=== PATIENT | male | born 1975 | race Caucasian/White ===

== ENCOUNTER 2024-06-05 10:55 | Emergency (ER) | payer BC, SELFPAY ==
[2024-06-05 10:58] VITALS: BP 169/110
[2024-06-05 11:16] LABS: % Basophils 1.3 % (0-2); % Eosinophils 1.7 % (0-6); % Immature Granulocytes 0.4 % (0-0.5); % Lymphocytes 19.2 % (20.5-51.1); % Monocytes 7.6 % (1.7-9.3); % Neutrophils 69.8 % (42.2-75.2); Absolute Basophils 0.1 10^3/uL (0-0.2); Absolute Eosinophils 0.1 10^3/uL (0-0.7); Absolute Lymphocytes 1.5 10^3/uL (1.2-3.4); Absolute Monocytes 0.6 10^3/uL (0.1-0.6); Absolute Neutrophils 5.3 10^3/uL (1.4-6.5); Hematocrit 46.6 % (39.0-52.0); Mean Corp Hgb Conc. 34.3 g/dL (33.0-37.0); Mean Corpuscular Volume 87.4 fL (80.0-94.0); Mean Platelet Volume 10.3 fL (7.4-10.4); Nucleated Red Blood Cells % 0 % (-); Platelet Count 276 10^3/uL (130-400); Red Blood Cell Count 5.33 10^6/uL (4.70-6.10); Red Cell Dist. Width 12.9 % (11.5-14.5); White Blood Cell Count 7.6 10^3/uL (4.8-10.8)
[2024-06-05 11:28] LABS: ALT (SGPT) 25 U/L (0-50); AST (SGOT) 22 U/L (17-59); Albumin 4.7 g/dl (3.5-5.0); Alkaline Phosphatase 76 U/L (38-126); Blood Urea Nitrogen 16 mg/dl (9-20); Calcium 10.7 mg/dl (8.4-10.2); Carbon Dioxide 27 mmol/L (22-30); Chloride 104 mmol/L (98-107); Glucose 130 mg/dl (70-99); Potassium 4.5 mmol/L (3.5-5.1); Sodium 140 mmol/L (135-145); Total Bilirubin 0.7 mg/dl (0.2-1.3); Total Protein 7.1 g/dl (6.3-8.2); eGFR > 60.00
[2024-06-05 11:39] LABS: Troponin I < 0.012 ng/ml
[2024-06-05 12:19] VITALS: BP 136/81; BMI 27.2
--- NOTE | 2024-06-05 12:52 | ED.GENMED ---
History of Present Illness
General
Chief Complaint: Chest Pain
Source: patient
Exam Limitations: none
Time Seen by Provider: 06/05/24 12:34
Nursing documentation reviewed up to this point in time: agreed with
History of Present Illness
History of Present Illness:
49-year-old male with history of HTN, GERD HLD presents stating he's had left upper chest and left neck pain pat 2 days, causes him to have a headache. Advil 400 mg with no relief. Pain is constant. No recollection of overuse or injury but he works
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 Denies SOB, n/v. [place], no ocean or excessive activity.
Saw PCP last week
Saw his Php Lamp Developer at [place] 2 weeks ago and had echo and has heard nothing back yet. Told his cholesterol is high and has rx for Rosuvastatin waiting at his pharmacy for pickup
Past History
Past History
ED Past Medical History: GERD, HTN and Hypercholesterolemia
ED Past Surgical History: Cholecystectomy and Orthopedic
Social History
Tobacco: Non-smoker
Alcohol: Occasional
Drug: None
Personal:
Living: with family
Employment: Employed
Review of Systems
Review of Systems
Allergies reviewed?: Yes
All Other Systems: ROS reviewed and negative except as documented in HPI and ROS
Constitutional: Denies fatigue
Respiratory: Denies trouble breathing
Cardiac: Reports chest pain (L upper chest); Denies diaphoresis or palpitations
ABD/GI: Denies abdominal pain, nausea, vomiting, diarrhea or anorexia
: Denies difficulty voiding
Musculoskeletal: Reports neck pain (left side of neck)
Skin: Reports no symptoms
Neurological: Reports no symptoms
Phy Exam
Physical Exam
Physical Exam:
GENERAL: No acute distress. A&Ox3.
CONSTITUTIONAL: Afebrile.
EYES: clear, conjunctivae normal
Neck: Supple. Full ROM
ENMT: moist mucus membranes, Pharynx nl
RESPIRATORY: Regular respirations, nonlabored, lungs clear.
CARDIOVASCULAR: Regular rate and rhythm, no murmurs, no rubs.
GI: Soft, nontender, normal BS
MUSCULOSKELETAL: No spinal bony tenderness. Full ROM of neck, discomfort elicited with rotation to right. Mildly tender right neck ST up to lower occiput. Full ROM of LUE. Non tender left upper chest wall to palpation. Moves with ease. Well
perfused.
SKIN: Warm, dry, pink
PSYCH: Normal mood and affect. Well kept, interactive and appropriate
NEUROLOGIC: Awake, alert and oriented. No focal neurological deficits
Scores
Heart Score for Chest Pain Patients
STEMI patient?: Not applicable
Course
Orders/Labs/Results
Orders:
Orders
06/05/24 10:58
ECG [Electrocardiogram (*1)] Urgent
Reason for Study: Chest Pain
EKG- Treatment ONCE
06/05/24 11:05
Complete Blood Count/With Diff Urgent
Comprehensive Metabolic Panel Urgent
Troponin I Urgent
06/05/24 13:12
CR Chest - 2 Views Urgent
Comment:
Reason For Exam: L upper chest pain
06/05/24 14:31
Acetaminophen [Tylenol] 1,000 mg PO NOW STA
Abnormal Lab Results
06/05/24
11:05
Lymphocytes % 19.2 L %
(20.5-51.1)
Glucose 130 H mg/dl
(70-99)
Calcium 10.7 H mg/dl
(8.4-10.2)
06/05/24 11:05
06/05/24 11:05
Vital Signs
Initial and Last Documented VS:
Initial Vital Signs
Temp Pulse Resp BP Pulse Ox
98.0 F 110 18 169/110 98
06/05/24 10:58 06/05/24 10:58 06/05/24 10:58 06/05/24 10:58 06/05/24 10:58
Last Documented Vital Signs
Temp Pulse Resp BP Pulse Ox
98.5 F 86 16 124/85 99
06/05/24 12:19 06/05/24 14:35 06/05/24 14:35 06/05/24 14:35 06/05/24 14:35
MDM/Problems Addressed
Differential Diagnosis Includes:
ACS, musculoskeletal pain
MDM/Problems Addressed:
49-year-old male with history of HTN, GERD HLD presents stating he's had left upper chest and left neck pain pat 2 days, causes him to have a headache. Advil 400 mg with no relief. Pain is constant. No recollection of overuse or injury but he works
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 Denies SOB, n/v. [place] the [place], no ocean or excessive activity.
Saw PCP last week
Saw his Php Lamp Developer at [place] 2 weeks ago and had echo and has heard nothing back yet. Told his cholesterol is high and has rx for Rosuvastatin waiting at his pharmacy for pickup
EKG NSR
CBC, CMP normal
Troponin Normal
2:30 PM:
Chest x-ray normal
Pt given Tylenol for his headache
BP 124/85
*EKG
EKG Intrepretation Date: 06/05/24
Interpretation: normal
Heart Rate: 99
Rate: normal
Rhythm: sinus
[place]: normal axis
Interval: normal interval
QRS Pattern: normal QRS
Ischemia: no ischemia
*Critical Care Note
Total Time (30-74mins, 75-104mins- exclusive of procedures): Not Applicable
ED Attending Note
-
Portions of this chart may have been created with voice recognition software.� Occasional wrong word or��sound alike� substitutions may have occurred due to the inherent limitations of voice recognition software.
Discharge Plan
Departure
Patient Disposition: Home (Routine Discharge)
Date of Disposition: 06/05/24
Time of Disposition: 14:29
Patient with high blood pressure during this ER visit?: No
Condition: Good
Discharge Problem:
Musculoskeletal chest pain, Musculoskeletal neck pain, Headache
Instructions: Chest Pain That Is Not Caused by the Heart (DC), Headache, Adult ED, Musculoskeletal Pain
Prescriptions:
No Action
pantoprazole 40 MG tablet,delayed release (DR/EC)
40 mg PO DAILY
Theragen Tablet
1 tab PO DAILY
ascorbic acid (vitamin C) [Vitamin C] 500 mg Tablet
500 mg PO DAILY
ibuprofen 200 mg Tablet
400 mg PO BIDPRN PRN (Reason: mild pain)
amlodipine-benazepril 5-20 mg Capsule
1 cap PO DAILY
Referrals:
Yesica Gomez CRNP [Family Provider] - As needed
Activity Restrictions/Additional Instructions:
As we discussed, your workup here today shows nothing worrisome, specifically no indication that your symptoms are caused from your heart or heart attack.
This is most likely musculoskeletal pain. I sent a prescription to your pharmacy for a muscle relaxant. The Flexeril or cyclobenzaprine can make you sleepy and slow the reflexes so do not drive or operate any machinery within 8 hours of taking it.
You may want to save the Flexeril for bedtime or for when you can rest.
Ibuprofen 600 mg every 6-8 hours or Tylneol 1000 mg 3 times a day as needed for pain or headache
Avoid any activity that aggravates the pain
See your doctor in 7-10 days if not better by then
Interventions
Interventions:
*Risk Screen - Suicide Last Done: 06/05/24 12:19
*General Assessment Last Done: 06/05/24 12:19
*Neglect/Abuse Screening Last Done: 06/05/24 12:19
ED- Fall Risk Assessment Last Done: 06/05/24 12:19
*ED COVID-19 Vaccine History Last Done: 06/05/24 12:19
*Nursing Disposition Last Done: 06/05/24 14:40
ED- Cardiac Assessment Last Done: 06/05/24 12:19
Discharge Date and Time
Discharge Date/Time: 06/05/24 14:41
Print Language: KISWAHILI
[2024-06-05 13:07] VITALS: BP 134/93
[2024-06-05 13:55] VITALS: BP 134/93
--- NOTE | 2024-06-05 13:56 | EDRN ---
the pt is resting in stretcher in the lowest position, side rails up x1, call hope within reach, HOB elevated, no s/s of distress, the pt denies chest pain and denies shoulder pain at this time, awaiting for the pt to go to xray, will continue to
monitor the pt closely
[2024-06-05 14:31] VITALS: BP 124/85
[2024-06-05 14:35] VITALS: BP 124/85
[2024-06-05] MEDS: TYLENOL 1000 MG PO (14:37)
== END 2024-06-05 14:41 | disposition home or self-care (01) ==
LOC: EMR 10:55
PROVIDERS: Emergency Medicine; EMERGENCY PHYSICIAN Emergency Medicine; FAMILY PHYSICIAN Registered Nurse
DX: R07.89 Other chest pain (principal); M54.2 Cervicalgia; R51.9 Headache, unspecified; I10 Essential (primary) hypertension; E78.00 Pure hypercholesterolemia, unspecified; K21.9 Gastro-esophageal reflux disease without esophagitis
CPT/HCPCS: 99284; 71046; 80053; 84484; 85025; 93005

== ENCOUNTER → 2024-07-03 14:18 | Outpatient (REF) | payer BC, SELFPAY | LOC: RAD 14:18 | PROVIDERS: ATTENDING PHYSICIAN Physician Assistant; FAMILY PHYSICIAN Registered Nurse | DX: M79.662 Pain in left lower leg (principal) | CPT/HCPCS: 93971 ==

== ENCOUNTER → 2024-07-10 16:41 | Outpatient (REF) | payer BC, SELFPAY | LOC: RAD 16:41 | PROVIDERS: ATTENDING PHYSICIAN Orthopaedic Surgery Hand Surgery; FAMILY PHYSICIAN Registered Nurse | DX: S05.50XA Penetrating wound with foreign body of unspecified eyeball, initial encounter (principal) | CPT/HCPCS: 70030 ==

== ENCOUNTER 2024-08-18 09:33 | Emergency (ER) | payer BC, SELFPAY ==
[2024-08-18 09:40] VITALS: BP 149/97
[2024-08-18 10:55] LABS: % Basophils 1.2 % (0-2); % Eosinophils 1.1 % (0-6); % Immature Granulocytes 0.5 % (0-0.5); % Lymphocytes 17.9 % (20.5-51.1); % Monocytes 8.7 % (1.7-9.3); % Neutrophils 70.6 % (42.2-75.2); Absolute Basophils 0.1 10^3/uL (0-0.2); Absolute Eosinophils 0.1 10^3/uL (0-0.7); Absolute Lymphocytes 1.2 10^3/uL (1.2-3.4); Absolute Monocytes 0.6 10^3/uL (0.1-0.6); Absolute Neutrophils 4.6 10^3/uL (1.4-6.5); Hematocrit 45.4 % (39.0-52.0); Hemoglobin 15.5 g/dL (13.0-18.0); Mean Corp Hgb Conc. 34.1 g/dL (33.0-37.0); Mean Corpuscular Hgb 30.7 pg (27.0-31.0); Mean Corpuscular Volume 89.9 fL (80.0-94.0); Mean Platelet Volume 10.1 fL (7.4-10.4); Nucleated Red Blood Cells % 0 % (-); Platelet Count 259 10^3/uL (130-400); Red Blood Cell Count 5.05 10^6/uL (4.70-6.10); Red Cell Dist. Width 12.6 % (11.5-14.5); White Blood Cell Count 6.4 10^3/uL (4.8-10.8)
[2024-08-18 11:00] VITALS: BP 131/89
[2024-08-18 11:00] LABS: ALT (SGPT) 36 U/L (0-50); AST (SGOT) 28 U/L (17-59); Albumin 4.5 g/dl (3.5-5.0); Alkaline Phosphatase 77 U/L (38-126); Blood Urea Nitrogen 18 mg/dl (9-20); Calcium 10.4 mg/dl (8.4-10.2); Carbon Dioxide 27 mmol/L (22-30); Chloride 105 mmol/L (98-107); Glucose 110 mg/dl (70-99); Magnesium 2.1 mg/dl (1.6-2.3); Potassium 4.4 mmol/L (3.5-5.1); Sodium 141 mmol/L (135-145); Total Bilirubin 0.4 mg/dl (0.2-1.3); eGFR > 60.00
[2024-08-18 11:09] LABS: Troponin I < 0.012 ng/ml
--- NOTE | 2024-08-18 11:42 | ED.GENMED ---
History of Present Illness
General
Chief Complaint: Chest Pain
Source: patient
Exam Limitations: none
Time Seen by Provider: 08/18/24 10:16
Nursing documentation reviewed up to this point in time: agreed with
History of Present Illness
History of Present Illness:
49-year-old male presenting to the emergency department today with concerns of chest pain intermittently over the past month none currently and also very mild diffuse headache described as achy. Also mild nausea. Chest pain sometimes will radiate
to his shoulder. Does follow-up with cardiology has had outpatient workups without any specific conclusion. He is also to started new medications 10 days ago for blood pressure.
Past History
Past History
ED Past Medical History: GERD, HTN and Hypercholesterolemia
ED Past Surgical History: Cholecystectomy and Orthopedic
Social History
Tobacco: Non-smoker
Alcohol: Occasional
Drug: None
Personal:
Living: with family
Employment: Employed
Review of Systems
Review of Systems
Allergies reviewed?: Yes
All Other Systems: ROS reviewed and negative except as documented in HPI and ROS
Phy Exam
Physical Exam
Physical Exam:
GENERAL: Alert , in no apparent distress
EYE: pupils equal and reactive
NECK: Supple, no significant adenopathy.
ENT: o/p clr, mmm.
CARDIAC: Regular rate and rhythm .
LUNGS: Clear breath sounds bilaterally, no acute respiratory distress, no wheezes/rales/rhonchi
ABDOMEN: Soft, without focal tenderness, no r/g, no cvat
NEUROLOGICAL: Alert and oriented, no focal neuro deficits
SKIN: Warm and dry, skin intact.
MUSCULOSKELETAL: No edema, well perfused.
PSYCH: Normal and appropriate interaction.
Scores
Heart Score for Chest Pain Patients
STEMI patient?: No
History: Slightly or Non-Suspicious
ECG: Normal
Age: >45 - <65 years
Risk Factors: 1 or 2 Risk Factors
Troponin: </= Normal Limit
Heart Score for Chest Pain Patients: 2
Heart Score Risk: 2.5% MACE over next 6 weeks
Course
Orders/Labs/Results
Orders:
Orders
08/18/24 09:33
EKG [Electrocardiogram (*1)] Urgent
Reason for Study: Chest Pain
08/18/24 09:34
EKG- Treatment ONCE
08/18/24 10:32
CR Chest - 2 Views Urgent
Comment:
Reason For Exam: cp
08/18/24 10:39
Complete Blood Count/With Diff Urgent
Comprehensive Metabolic Panel Urgent
Magnesium Urgent
Troponin I Urgent
Abnormal Lab Results
08/18/24
10:39
Lymphocytes % 17.9 L %
(20.5-51.1)
Glucose 110 H mg/dl
(70-99)
Calcium 10.4 H mg/dl
(8.4-10.2)
08/18/24 10:39
08/18/24 10:39
Vital Signs
Initial and Last Documented VS:
Initial Vital Signs
Temp Pulse Resp BP Pulse Ox
98.0 F 110 16 149/97 98
08/18/24 09:40 08/18/24 09:40 08/18/24 09:40 08/18/24 09:40 08/18/24 09:40
Last Documented Vital Signs
Temp Pulse Resp BP Pulse Ox
98.0 F 89 28 149/97 94
08/18/24 09:40 08/18/24 10:54 08/18/24 10:45 08/18/24 09:40 08/18/24 10:45
MDM/Problems Addressed
MDM/Problems Addressed:
49-year-old male presenting to the emergency department today with concerns of chest pain intermittently over the past month as well as headache tribes vague diffuse associated nausea. On arrival blood pressure mildly elevated but improved without
specific treatment otherwise vital signs are normal. Afebrile labs unremarkable troponin negative EKG normal no signs of emergent process stable for outpatient follow-up return precautions given.
*Critical Care Note
Total Time (30-74mins, 75-104mins- exclusive of procedures): Not Applicable
ED Attending Note
-
Portions of this chart may have been created with voice recognition software.� Occasional wrong word or��sound alike� substitutions may have occurred due to the inherent limitations of voice recognition software.
Discharge Plan
Departure
Patient Disposition: Home (Routine Discharge)
Date of Disposition: 08/18/24
Time of Disposition: 11:42
Patient with high blood pressure during this ER visit?: No
Condition: Good
Covid-19: Not Applicable
Discharge Problem:
Chest pain
Instructions: Chest Pain NON-DHP Implementation Consultant Follow Up
Prescriptions:
New
pantoprazole 20 mg tablet,delayed release (DR/EC)
20 mg PO DAILY 28 Days Qty: 28 0RF
No Action
pantoprazole 40 MG tablet,delayed release (DR/EC)
40 mg PO DAILY
Theragen Tablet
1 tab PO DAILY
ascorbic acid (vitamin C) [Vitamin C] 500 mg Tablet
500 mg PO DAILY
ibuprofen 200 mg Tablet
400 mg PO BIDPRN PRN (Reason: mild pain)
amlodipine-benazepril 5-20 mg Capsule
1 cap PO DAILY
Activity Restrictions/Additional Instructions:
You came to the emergency department today with concerns of chest pain. Here had a reassuring assessment. Please feel closely with your manager java and primary care doctor and take Protonix once daily to see if this helps with symptoms. Return
to the emergency department for any worsening, new or concerning symptoms.
Interventions
Interventions:
*Risk Screen - Suicide Last Done: 08/18/24 09:40
*General Assessment Last Done: 08/18/24 10:36
*Neglect/Abuse Screening Last Done: 08/18/24 09:40
ED- Fall Risk Assessment Last Done: 08/18/24 10:38
*ED COVID-19 Vaccine History Last Done: 08/18/24 10:36
ED- Cardiac Assessment Last Done: 08/18/24 10:36
Discharge Date and Time
Print Language: BOLIVIAN
== END 2024-08-18 11:55 | disposition home or self-care (01) ==
LOC: EMR 09:33
PROVIDERS: Physician Assistant; EMERGENCY PHYSICIAN Emergency Medicine; FAMILY PHYSICIAN Registered Nurse
DX: R07.89 Other chest pain (principal)
CPT/HCPCS: 99285; 71046; 80053; 83735; 84484; 85025; 93005

== ENCOUNTER 2025-05-18 20:07 | Emergency (ER) | payer BC, SELFPAY ==
[2025-05-18 20:12] VITALS: BP 162/106
[2025-05-18 20:36] LABS: Hematocrit 44.7 % (39.0-52.0); Hemoglobin 15.1 g/dL (13.0-18.0); Mean Corp Hgb Conc. 33.8 g/dL (33.0-37.0); Mean Corpuscular Volume 90.5 fL (80.0-94.0); Nucleated Red Blood Cells % 0 % (-); Platelet Count 213 10^3/uL (130-400); Red Cell Dist. Width 13.5 % (11.5-14.5)
[2025-05-18 20:48] LABS: COVID-19 Antigen Positive (Negative)
[2025-05-18 21:18] LABS: Blood Urea Nitrogen 19 mg/dl (9-20); Calcium 9.7 mg/dl (8.4-10.2); Carbon Dioxide 23 mmol/L (22-30); Chloride 109 mmol/L (98-107); Glucose 93 mg/dl (70-99); Sodium 139 mmol/L (135-145); eGFR > 60.00
--- NOTE | 2025-05-18 22:06 | ED.GENMED ---
History of Present Illness
General
Chief Complaint: Fever
Source: patient
Exam Limitations: none
Time Seen by Provider: 05/18/25 21:56
History of Present Illness
History of Present Illness:
50yoM with a history of hypertension presenting for evaluation of flu-like symptoms x 2 days. He reports fevers up to 101 at home with sinus/ear pressure, cough, body aches, and malaise. He reports some tightness in his chest but denies any overt
pain. His daughter is also sick. He has been taking Coricidin OTC for his symptoms. He denies any vomiting, diarrhea, abdominal pain.
Past History
Past History
ED Past Medical History: GERD, HTN and Hypercholesterolemia
ED Past Surgical History: Cholecystectomy and Orthopedic
Social History
Tobacco: Non-smoker
Alcohol: Occasional
Drug: None
Personal:
Living: with family
Employment: Employed
Phy Exam
General Physical Exam
General Presentation: well appearing and no apparent distress
General Skin: warm and dry
General Habitus: normal
General Mental: alert
ENT Exam
ENT Exam: TM's normal, pharynx normal, neck supple and normocephalic
Cardiovascular Exam
Cardiovascular Exam: regular rate/rhythm
Pulmonary Exam
Pulmonary Exam: lungs clear, no respiratory distress, no rales, no crackles, no rhonchi and no wheezing
Neurological Exam
Neurological Exam: alert
[place] Coma Scale
Eye Opening: Spontaneous
Verbal Response: Oriented
Motor Response: Obeys Commands
GCS Total Score: 15
Skin Exam
Skin Exam: normal color and warm/dry
Psychiatric Exam
Psychiatric Exam: normal mood/affect
Course
Orders/Labs/Results
Orders:
Orders
05/18/25 20:15
CR Chest - 2 Views Urgent
Comment:
Reason For Exam: cough
05/18/25 20:25
Basic Metabolic Panel Urgent
Complete Blood Count/With Diff Urgent
05/18/25 20:29
COVID-19 Antigen Urgent
Source: Nasal Swab
Influenza A+B Rapid Molecular Urgent
SOL Source: Nasal Swab
Specimen Description:
05/18/25 22:06
Electrocardiogram (*1) Urgent
Reason for Study: Chest Pain
EKG- Treatment ONCE
05/18/25 22:11
LFT [Aijui-Fdad-Kxoqlad] Urgent
Potassium Urgent
05/18/25 22:31
Troponin I Urgent
05/18/25 22:32
Ketorolac [Toradol] 15 mg IV NOW STA
Abnormal Lab Results
05/18/25 05/18/25 05/18/25
20: 20:29 22:11
Absolute Lymphs (auto) 1.0 L 10^3/uL
(1.2-3.4)
Absolute Monos (auto) 1.2 H 10^3/uL
(0.1-0.6)
Lymphocytes % 13.8 L %
(20.5-51.1)
Monocytes % 16.0 H %
(1.7-9.3)
Chloride 109 H mmol/L
(98-107)
ALT 56 H U/L
(0-50)
SARS-CoV-2 Antigen Positive A
(Negative)
05/18/25 20:25
05/18/25 22:11
Vital Signs
Initial and Last Documented VS:
Initial Vital Signs
Temp Pulse Resp BP Pulse Ox
99.0 F 104 20 162/106 96
05/18/25 20:12 05/18/25 20:12 05/18/25 20:12 05/18/25 20:12 05/18/25 20:12
Last Documented Vital Signs
Temp Pulse Resp BP Pulse Ox
99.0 F 87 18 120/80 96
05/18/25 20:12 05/18/25 23:29 05/18/25 23:29 05/18/25 23:29 05/18/25 23:29
MDM/Problems Addressed
Differential Diagnosis Includes:
50yoM here with flu-like symptoms x 2 days with fevers up to 101. Temp 99 on arrival. He is well appearing in no distress. Exam is reassuring. Differential diagnosis includes but is not limited to: COVID, influenza, other viral illness, consider
pneumonia, consider viral myocarditis and he does report chest tightness
Initial ED plan: Workup initiated in triage. COVID test is positive. Labs overall unremarkable including normal white count. CXR clear without infiltrates per my interpretation. Will check troponin and EKG. IV Toradol for symptoms.
*Pulse Oximetry
SaO2: 96
Oxygen Mode of Delivery: Room air
Patient hypoxic: no (96%)
*EKG
Interpreted by ED Provider?: Yes
EKG Intrepretation Date: 05/18/25
Heart Rate: 89
Rate: normal
Rhythm: sinus
[place]: normal axis
Interval: normal interval
QRS Pattern: right bundle branch block (incomplete)
Ischemia: no ischemia
*Critical Care Note
Total Time (30-74mins, 75-104mins- exclusive of procedures): Not Applicable
Update Note
Update Note:
EKG shows NSR without ischemic changes and troponin WNL. No episodes of hypoxia throughout ED stay. No indication for hospitalization. Supportive care and quarantine reviewed. Advised f/u with PCP and ED return precautions reviewed. He was
discharged in stable condition.
ED Attending Note
-
Portions of this chart may have been created with voice recognition software.� Occasional wrong word or��sound alike� substitutions may have occurred due to the inherent limitations of voice recognition software.
Discharge Plan
Departure
Patient Disposition: Home (Routine Discharge)
Date of Disposition: 08/15/25
Time of Disposition: 23:23
Patient with high blood pressure during this ER visit?: Yes
Discharge Problem:
COVID-19
Instructions: COVID-19 - ED discharge instructions
Prescriptions:
No Action
pantoprazole 40 MG tablet,delayed release (DR/EC)
40 mg PO DAILY
Theragen Tablet
1 tab PO DAILY
ascorbic acid (vitamin C) [Vitamin C] 500 mg Tablet
500 mg PO DAILY
ibuprofen 200 mg Tablet
400 mg PO BIDPRN PRN (Reason: mild pain)
amlodipine-benazepril 5-20 mg Capsule
1 cap PO DAILY
pantoprazole 20 mg tablet,delayed release (DR/EC)
20 mg PO DAILY 28 Days Qty: 28 0RF
Referrals:
Yesica Gomez CRNP [Family Provider, Family Practice]
Activity Restrictions/Additional Instructions:
Drink plenty of fluids and rest. Take Tylenol as needed for fevers. Use honey for cough and Flonase for nasal congestion.
Remain in quarantine until you are fever free for 24 hours and feeling better.
Please follow-up with your family doctor next week. Return to the ER with any worsening symptoms or trouble breathing.
Interventions
Interventions:
*Risk Screen - Suicide Last Done: 05/18/25 21:15
*General Assessment Last Done: 05/18/25 20:12
*Neglect/Abuse Screening Last Done: 05/18/25 21:15
*ED- Fall Risk Assessment Last Done: 05/18/25 21:15
*ED COVID-19 Vaccine History Last Done: 05/18/25 21:15
*Nursing Disposition Last Done: 05/18/25 23:30
ED- Neurological Assessment Last Done: 05/18/25 21:15
ED-Skin Assessment Last Done: 05/18/25 21:15
Discharge Date and Time
Discharge Date/Time: 05/18/25 23:30
Print Language: NEPALI
[2025-05-18 22:33] LABS: ALT (SGPT) 56 U/L (0-50); AST (SGOT) 27 U/L (17-59); Albumin 4.5 g/dl (3.5-5.0); Alkaline Phosphatase 81 U/L (38-126); Potassium 4.2 mmol/L (3.5-5.1); Total Protein 7.1 g/dl (6.3-8.2)
[2025-05-18] MEDS: TORADOL 15 MG IV (22:37)
[2025-05-18 23:06] LABS: Troponin I < 0.012 ng/ml
[2025-05-18 23:29] VITALS: BP 120/80
== END 2025-05-18 23:30 | disposition home or self-care (01) ==
LOC: EMR 20:07
PROVIDERS: Physician Assistant; EMERGENCY PHYSICIAN Emergency Medicine; FAMILY PHYSICIAN Registered Nurse
DX: U07.1 COVID-19 (principal); I10 Essential (primary) hypertension
CPT/HCPCS: 99284; 96374; 71046; 80048; 80076; 84132; 84484; 85025; 87502; 87811; 93005

== ENCOUNTER → 2025-06-28 15:45 | Outpatient (REF) | payer BC, SELFPAY | LOC: RAD 15:45 | PROVIDERS: ATTENDING PHYSICIAN Nurse Practitioner Family; FAMILY PHYSICIAN Registered Nurse | DX: R10.9 Unspecified abdominal pain (principal) | CPT/HCPCS: 74178; Q9967 ==